=== PATIENT | female | born 1970 | race African-American/Black ===

== ENCOUNTER 2021-03-10 07:05 | Outpatient (RCR) | payer OTHER, SELFPAY ==
[2021-03-08 17:06] LABS: Hemoglobin 5.5 g/dL (12.0-15.0)
[2021-03-08 17:07] LABS: Hematocrit 20.1 % (37.0-47.0)
[2021-03-09] VITALS (10 sets, daily range): BP systolic 138–155; BP diastolic 78–99; PULSE 75–89; RESP 16–20; TEMP 36.1–36.8; O2SAT 100
[2021-03-10] VITALS (9 sets, daily range): BP systolic 132–149; BP diastolic 85–95; PULSE 75–92; RESP 20; TEMP 36.2–36.8; O2SAT 98–100
[2021-03-10 08:14] LABS: Hematocrit 25.8 % (37.0-47.0); Hemoglobin 7.4 g/dL (12.0-15.0)
[2021-03-10] MEDS: SODIUM CHLORIDE 0.9% IV 250 ML 30 ML IV CONT (10:00)
== END 2021-06-06 23:59 | disposition home or self-care (01) ==
LOC: ANHCPCTRAN 07:05
PROVIDERS: Visit Provider Obstetrics & Gynecology
DX: D64.9 Anemia, unspecified (principal)
CPT/HCPCS: 36415; 36430; 85014; 85018; 86850; 86900; 86901; 86920; J7050; P9016

== ENCOUNTER 2021-03-11 01:36 | Day surgery (SDC) | payer OTHER, SELFPAY ==
[2021-03-08 08:53] VITALS: BMI 63.3
--- NOTE | 2021-03-09 07:26 | PM.IMHP ---
H&P: HPI History of Present Illness Date/Time: 03/09/21 07:26 this is a 50 year female admitted for hysteroscopy/dilatation curettage / ablation. She was seen in the office for the 1st time recently. She was weak and complained of continuous heavy bleeding. Her hemoglobin is 5.5 and she will thus receive 4units of blood preoperatively. Risks and benefits of these procedures were reviewed in great detail. Chief Complaint: heavy bleeding with severe anemia Review of Systems Review of Systems: All systems reviewed & are unremarkable except as noted in HPI and below FOR[facility]LY [facility] Social History Social History Smoking status: Never smoker Second hand tobacco smoke exposure: No Alcohol intake: never Substance use: never Substance use type: does not use Spiritual care concerns: No Meds Home Medications and Allergies Home Medications Medication Instructions Recorded Confirmed Type norgestrel-ethinyl estradiol 1 tablet PO DAILY 03/08/21 03/08/21 History [Alberto (28)] Allergies Allergy/AdvReac Type Severity Reaction Status Date / Time Sulfa (Sulfonamide Allergy Swelling Verified 03/08/21 08:51 Antibiotics) Exam Const: General: no acute distress Eyes: General: appearance normal, both eyes and all related structures Neck: Neck: supple and no JVD Thyroid: thyroid normal Resp: Effort & Inspection: normal respiratory effort Auscultation: clear to auscultation bilaterally Cardio: Rate: regular rate Rhythm: regular rhythm GI: Inspection: non-distended GI Palp: Yes Soft to palpation, No Tenderness to palpation present (GI) and No Guarding due to palpation present (GI) Auscultation: normal bowel sounds : General: Yes bladder normal to palpation External Female Exam: normal external appearance Speculum Exam - Vagina: normal vaginal discharge and No vaginal bleeding Speculum Exam - Cervix: nontender Bimanual exam- vagina & uterus: bladder normal to palpation and No Cervical tenderness present OB/external & speculum: No vaginal bleeding Skin: General skin exam: no rashes or lesions noted Extrem: General: normal to inspection and no edema Psych: Mental Status: mental status grossly normal Affect: normal affect Assessment and Plan Additional Plan Impression: Morbid obesity with excessive heavy bleeding resulting in severe anemia Plan: Hysteroscopy/ dilatation curettage/ablation
[2021-03-11] VITALS (10 sets, daily range): BP systolic 134–153; BP diastolic 86–108; PULSE 65–94; RESP 16–20; TEMP 36.7–37; O2SAT 96–100
--- NOTE | 2021-03-11 05:49 | WPDHPUPDATE1 ---
History and Physical Update Update Date/Time: 03/11/21 05:49 History and Physical has been reviewed, including an updated exam of the patient. There are NO changes in the patient's condition. Risks, benefits, and alternatives have been discussed and questions answered. Patient agrees to proceed with procedure.
[2021-03-11] MEDS: ACETAMINOPHEN 500 MG TABLET 1000 MG PO (10:44)
[2021-03-11] MEDS: LACTATED RINGERS 1,000 ML 30 ML IV CONT (11:20)
--- NOTE | 2021-03-11 11:52 | WPDANESEPPF ---
Anes - Initial Pre Proc Eval Procedure: Operation Date: 03/11/21 12:15 Proposed Procedures p Hysteroscopy Dilation and Curettage Endometrial Ablation [place] - Cliff Alvarado MD Date/Time: 03/11/21 11:52 Surgeon: Cliff Alvarado MD Pre Op Diagnosis: heavy bleeding Patient Data Age: 50 Gender: F Height: 1.57 m Weight: 157.5 kg Last Vital Signs Temp 37.0 C 03/11/21 10:30 Pulse 94 03/11/21 10:30 Resp 16 03/11/21 10:30 BP 152/92 H 03/11/21 10:30 Pulse Ox 100 03/11/21 10:30 Allergies Allergy/AdvReac Type Severity Reaction Status Date / Time Sulfa (Sulfonamide Allergy Severe Swelling,hives,difficulty Verified 03/11/21 10:40 Antibiotics) breathing Home Medications Medication Instructions Recorded Confirmed Type norgestrel-ethinyl estradiol 1 tablet PO DAILY 03/08/21 03/11/21 History [Alberto (28)] hydrocodone-acetaminophen 1 tablet PO Q4H PRN #20 tablet 03/11/21 Rx Patient hx anesthesia problems: post op nausea/vomiting Family hx anesthesia problems: none PMFSH Past Medical History Medical History (Updated 03/11/21 @ 11:55 by Vincent Adkins DO) Migraine Social History Social History Smoking status: Never smoker Second hand tobacco smoke exposure: No Alcohol intake: never Substance use: never Substance use type: does not use Living arrangements: with family Gender identity (if verbalized by the patient): Female Spiritual care concerns: No Anes - Eval Final PreProcedure Day of Procedure 03/11/21 11:52 Patient weight: super morbidly obese Heart: regular rate and rhythm Lungs: clear to auscultation and normal air movement Airway: Mallampati scale class II Neurological: alert and oriented Last oral intake: >/= 8 hours ASA classification: III Emergent: no Anesthetic plan: proceed Anesthesia type and monitoring: general GIVS and LMA and standard monitoring Informed Consent: The patient's anesthetic plan and its attendant risks and benefits were discussed with the patient/family/POA. Questions were solicited and answers provided to the satisfaction of the patient/family/POA.
--- NOTE | 2021-03-11 13:20 | P.OP_ITS ---
Procedure Note - Detailed Date of Procedure 03/11/21 Pre-op Diagnosis heavy bleeding Post-op Diagnosis same Procedure Performed Hysteroscopy/ dilatation and curettage/ endometrial ablation Surgeon Cliff Alvarado MD Anesthesia general Indications this is a 50-year-old female who was admitted through the office with a hemoglobin of 5.5 and heavy bleeding. She received 4units of blood preoperatively over the 48 hours prior to admission. Findings Relatively benign appearing and uterus is sounded to 10cm. Description of Procedure Patient was prepped draped in the normal sterile fashion placed in the dorsal lithotomy position. Under LMA anesthesia weighted speculum was placed in posterior fornix vagina. The anterior lip of the cervix grasped with single- tooth tenaculum. 2.5cc of 1% xylocaine anesthesia placed at 2, 4, 8, 10:00 a.m. respectively. The uterus sounded to 10cm. Serial dilatation with fragmented dilators performed followed by passage of the 5mm visualizing hysteroscope using normal saline as visualizing medium. Thick tissue was seen in each fallopian tube os could be seen. No evidence of definitive pathology were noted. The uterus was scraped over the entire 360?. The endometrial ablation instrument was placed in the uterus and burned for 120seconds. This was removed. The weighted speculum was removed as well as the single-tooth tenaculum. Blood loss was estimated at5cc. All sponge, needle, instrument counts were correct. There were no immediate complications Estimated Blood Loss 5 Drains No Packing No Pathology yes Complications No immediate complications Condition stable Disposition PACU
[2021-03-11] MEDS: ONDANSETRON INJ 4 MG/2 ML VIAL IV PUSH (14:04)
--- NOTE | 2021-03-11 14:34 | SUR.PHASEII ---
PT ARRIVED INTO [facility] PER [facility] ELIZABETH. SPOKE TO DR GIL. SCOPE PATCH AND IV BENADRYL 25MG ORDERED.
[2021-03-11] MEDS: diphenhydrAMINE HCl INJ 50 MG/ML VIAL 25 MG IV PUSH (14:39)
[2021-03-11] MEDS: SCOPOLAMINE 1.5 MG PATCH TRANSDERM (14:39)
--- NOTE | 2021-03-11 14:42 | SUR.PHASEI ---
1442- bailey amount charted on this ptby error.
--- NOTE | 2021-03-11 15:09 | SUR.PHASEII ---
1500; PT RESTING QUIETLY. LIGHTS TURNED OFF IN ROOM. CALL LIGHT IN REACH
[2021-03-11] MEDS: oxyCODONE HCL (*CRX) 5 MG TAB IR PO (16:28)
--- NOTE | 2021-03-11 17:25 | SUR.PHASEII ---
1600; PT AWAKE, RESTING QUIETLY. STATES MILD CRAMPING. RIGHT SIDED HEADACHE NOW 1/10. DENIES NAUSEA. MILD CRAMPING. SM AMT VAG FLOW TO PERIPAD. BROTHER AT BEDSIDE. 1630; PT AWAKE AND ALERT. STATES SHE IS READY TO GO HOME. MEETS DISCHARGE CRITERIA.
== END 2021-03-11 16:40 | disposition home or self-care (01) ==
PROVIDERS: Visit Provider Obstetrics & Gynecology
PROC: 0U5B8ZZ Destruction of Endometrium, Via Natural or Artificial Opening Endoscopic (ICD-10-PCS; CPT 58563; principal; 2021-03-11 12:15)
DX: N93.9 Abnormal uterine and vaginal bleeding, unspecified (principal); D62 Acute posthemorrhagic anemia; E66.01 Morbid (severe) obesity due to excess calories; Z68.44 Body mass index [BMI] 60.0-69.9, adult
CPT/HCPCS: 58563; 88305; A9270; J1200; J2250; J2405; J2704; J3010; J7030; J7120